=== PATIENT | male | born 1955 ===

== ENCOUNTER → 2019-02-25 | Outpatient (REF) | payer OTHER ==
[2019-02-25 18:07] LABS: FOLATE 20.9 NG/ML
== END ==
LOC: M LAB REF 17:11
PROVIDERS: ATTEND Internal Medicine Nephrology
DX: D64.9 Anemia, unspecified (principal)

== ENCOUNTER → 2020-07-01 | Outpatient (REF) | payer OTHER, MEDICAID ==
[2020-07-01 18:39] LABS: PERCENT SATURATION 30.6 % (19.7-50.0); TOTAL PROTEIN 5.8 GM/DL (6.4-8.2)
== END ==
LOC: M LAB REF 17:01
PROVIDERS: ATTEND Internal Medicine Nephrology
DX: D64.9 Anemia, unspecified (principal)